=== PATIENT | female | born 1950 | race Caucasian/White ===

== ENCOUNTER 2016-08-15 10:36 | Emergency (ER) | payer MEDICARE, MEDICAID ==
[2016-08-15 11:10] VITALS: BP 114/94
[2016-08-15] MEDS ORDERED: SILVER SULFADIAZINE 50 APPL JAR TP ONE (11:17)
--- NOTE | 2016-08-15 11:26 | ERNOTE ---
ER Burn HPI Date of Service: 08/15/16 Stated Complaint: BURN ON ARM Time Seen by Provider: 08/15/16 11:08 Source: patient Exam Limitations: no limitations Immunizations: IMMUNIZATION HX Immunizations Up to Date Yes History of Influenza Vaccine No Hx Pneumococcal Vaccination No Allergies/Adverse Reactions: Allergies hair dye Allergy (Intermediate, Uncoded 08/15/16 10:47) Home Medications: HOME MEDICATIONS amLODIPine BESYLATE [Norvasc] 5 mg PO DAILY 08/04/14 [Last Taken Unknown] Losartan Potassium [Cozaar] 100 mg PO DAILY 08/15/16 [Last Taken Unknown] Sertraline HCl [Zoloft] 50 mg PO DAILY 08/15/16 [Last Taken Unknown] Silver Sulfadiazine [Silvadene] 1 appl TP BID #1 jar 08/15/16 [Last Taken Unknown] - History of Present Illness Narrative: Pt. comes in with c/o burn on L forearm that blistered and then opened. Pt. states that burn occurred a week ago from hot oil. Pt. denies any numbness tingling, fever, or drainage. Pt. states that she has been applying bactroban and leaving it open to air. Review of Systems - Review of Systems Constitutional: Present: no symptoms reported. Absent: recent illness, fever, chills, weakness, fatigue, malaise EYE: Present: no symptoms reported ENT: Present: no symptoms reported Respiratory: Present: no symptoms reported. Absent: shortness of breath, cough , wheezing Cardiology: Present: no symptoms reported. Absent: chest pain, palpitations, edema Gastrointestinal/Abdominal: Present: no symptoms reported. Absent: nausea, vomiting, diarrhea Genitourinary: Present: no symptoms reported Musculoskeletal: Present: no symptoms reported. Absent: back pain, joint pain Skin: Present: other - burn L forearm. Absent: rash, change in color Neurological: Present: no symptoms reported. Absent: headache, dizziness/light- headedness, numbness, tingling All Other Systems: All systems neg except as marked - Patient's Past Medical History Patient History - Medical: No pertinent hx Patient History - Cardiac/Respiratory: Hypertension, Hyperlipidemia Patient History - Cancer: No Hx of Cancer Patient History - Surgical Procedures: Cholecystectomy, EGD, Hysterectomy, Other Patient History - Other: None LMP (females 10-50): Menopausal - Social History Living Situations: home Abuse History: No History of abuse Psych History: No pertinent hx Alcohol Use: none Drug Use: none - Immunizations Immunizations Up to Date: Yes Hx Pneumococcal Vaccination: No History of Influenza Vaccine: No Physical Exam - Physical Exam General Appearance: Present: wd/wn, alert, no apparent distress Eye Exam: Normal inspection: bilateral, PERRL: bilateral, EOMI: bilateral Respiratory: Present: no respiratory distress, normal breath sounds, no accessory muscle use, chest nontender, lungs clear Cardiovascular/Chest: Present: regular rate, rhythm, no murmur, normal peripheral pulses Back Exam: Present: normal inspection Extremity Exam: Present: other - Burn second degree L forearm blister decompressed and open granulation tissue noted healing as expected Skin Exam: Present: warm/dry, other - Burn second degree L forearm blister decompressed and open granulation tissue noted healing as expected ED Progress - Vital Signs Patient's Vital Signs:: I have reviewed the patient's vital signs. Vital Signs: Vital Signs 08/15/16 08/15/16 10:43 11:08 Temperature 36.2 C L Pulse Rate 68 61 Respiratory 16 Rate Blood Pressure 136/98 114/94 O2 Sat by Pulse 97 95 Oximetry - Progress/Reassessment Chief Complaint: Teixeira Departure Clinical Impression: Burn, second degree - Departure Disposition: Home self-care Condition: Good Instructions: Burn Care, [id number] Additional Instructions: Please follow up with primary provider in 2-23 days. Apply silvadene cream and wrap arm with gauze twice a day after washing with soap and water. Referrals: Estee Ba FNP [Primary Care Provider] - Prescriptions: Silver Sulfadiazine [Silvadene] 1 appl TP BID #1 jar
== END 2016-08-15 11:41 | disposition home or self-care (01) ==
LOC: ER 10:36
DX: T22.212A Burn of second degree of left forearm, initial encounter (principal); X10.2XXA Contact with fats and cooking oils, initial encounter

== ENCOUNTER 2016-10-23 19:00 | Emergency (ER) | payer MEDICARE, MEDICAID ==
[2016-10-23 19:44] VITALS: BP 142/70
--- NOTE | 2016-10-23 21:03 | ERNOTE ---
Medical Problem HPI - General Chief Complaint: Foreign Body Time Seen by Provider: 10/23/16 20:44 Source: patient Exam Limitations: no limitations - Immun/Allergies/Home Medications Immunizations: IMMUNIZATION HX Immunizations Up to Date Yes History of Influenza Vaccine Yes Hx Pneumococcal Vaccination No Allergies/Adverse Reactions: Allergies hair dye Allergy (Intermediate, Uncoded 08/15/16 10:47) Home Medications: HOME MEDICATIONS amLODIPine BESYLATE [Norvasc] 5 mg PO DAILY 08/04/14 [Last Taken Unknown] Losartan Potassium [Cozaar] 100 mg PO DAILY 08/15/16 [Last Taken Unknown] Sertraline HCl [Zoloft] 50 mg PO DAILY 08/15/16 [Last Taken Unknown] Silver Sulfadiazine [Silvadene] 1 appl TP BID #1 jar 08/15/16 [Last Taken Unknown] - History of Present History Narrative: Pt states she has had decreased hearing for the past few days. She was trying to clean out her right ear with a q-tip and the q-tip came out without the cotton. she is afraid that the cotton is stuck in her ear Timing: constant Severity: mild Review of Systems - Review of Systems Constitutional: Absent: recent illness, fever EYE: Present: no symptoms reported ENT: Present: See HPI. Absent: sore throat, throat swelling Respiratory: Absent: shortness of breath Cardiology: Present: no symptoms reported Gastrointestinal/Abdominal: Present: no symptoms reported Genitourinary: Present: no symptoms reported Musculoskeletal: Present: no symptoms reported Skin: Present: no symptoms reported Neurological: Present: no symptoms reported Endocrine: Present: no symptoms reported Hematologic/Lymphatic: Present: no symptoms reported Psych: Present: no symptoms reported - Patient's Past Medical History Patient History - Medical: No pertinent hx Patient History - Cardiac/Respiratory: Hypertension, Hyperlipidemia Patient History - Cancer: No Hx of Cancer Patient History - Surgical Procedures: Cholecystectomy, EGD, Hysterectomy, Other Patient History - Other: None - Social History Living Situations: home Abuse History: No History of abuse Psych History: No pertinent hx Smoking Status: Former smoker Alcohol Use: none Drug Use: none - Immunizations Immunizations Up to Date: Yes Hx Pneumococcal Vaccination: No History of Influenza Vaccine: Yes Physical Exam - Physical Exam General Appearance: Present: wd/wn, alert, no apparent distress Head Exam: Present: normal inspection, no evidence of injury Eye Exam: Normal inspection: bilateral Ears, Nose, Throat: Present: cerumen impaction - bilateral moderate no FB found in either ear, normal pharynx Neck: Present: normal inspection, nontender Respiratory: Present: no respiratory distress, no accessory muscle use Extremity Exam: Present: normal inspection, normal range of motion Neurological Exam: Present: alert, oriented, normal mood/affect Skin Exam: Present: normal color, warm/dry Lymphatic Exam: Present: no adenopathy ED Progress - Vital Signs Vital Signs: Vital Signs 10/23/16 19:38 Temperature 36.8 C Pulse Rate 66 Respiratory 18 Rate Blood Pressure 142/70 O2 Sat by Pulse 96 Oximetry - Progress/Reassessment Chief Complaint: Foreign Body Progress:: Improved Progress Note-Subjective: 10/23/16 21:01 hearing better after cerumen removal Procedures Complications: other - Cerumen removed from right ear with ear loop under direct observation and no FB found. Some cerumen removed from left ear and remaining cerumen was flushed out by the RN. Pt tolerated procedure well. Departure - Departure Clinical Impression: Cerumen impaction Qualifiers: Laterality: bilateral Qualified Code(s): H61.23 - Impacted cerumen, bilateral Disposition: Home self-care Condition: Good Instructions: Earwax Buildup Additional Instructions: use ear washes regularly to keep ahead of the wax buildup. Do not use q-tips as they push the wax back further and irritate the skin. Follow up as needed Referrals: Estee Ba FNP [Primary Care Provider] -
== END 2016-10-23 21:19 | disposition home or self-care (01) ==
LOC: ER 19:00
DX: H61.23 Impacted cerumen, bilateral (principal); Z87.891 Personal history of nicotine dependence

== ENCOUNTER 2017-01-03 07:38 | Day surgery (SDC) | payer MEDICARE, MEDICAID ==
[~2017-01-03 07:38] MED LIST: RINGER'S SOLUTION,LACTATED 1,000 ML IV PRN
[2017-01-03] MEDS ORDERED: RINGER'S SOLUTION,LACTATED 1,000 ML IV ONE (12:15)
[2017-01-03] MEDS ORDERED: BUPIVACAINE HCL 50 ML VIAL IJ ONE (13:07)
[2017-01-03] MEDS ORDERED: ISOSULFAN BLUE 10 MG/ML VIAL IJ ONE (13:07)
--- NOTE | 2017-01-03 14:21 | OR ---
Operative Report - Dictated Report Narrative: Date 01/03/2017 Preoperative diagnosis: Right breast cancer Postoperative diagnosis: Same Procedure: Injection of blue dye. Right deep axillary sentinel lymph node biopsy. Right needle localized partial mastectomy. Staff surgeon: Raul Gray MD Anesthesia: GETA EBL: 30cc Specimens: Right axillary sentinel nodes. Right breast tissue with spatial orientation Description: Following the smooth induction of general endotracheal anesthesia the right breast and axilla were prepped and draped in a sterile fashion. 5 mL of Lymphazurin was injected in the subareolar position and massaged for distribution into the lymphatics. A neoprobe was used to identify the point of maximal counts. A field block was performed in the right axilla with Marcaine and an incision was carried out at the point of maximal counts. Dissection was taken down through the subcutaneous tissue through the clavipectoral fascia. We immediately encountered a blue and extremely hot lymph node with counts of 19 ,800. A transfixing suture was placed through this note for traction. This node was excised with electrocautery and several other additional nodes immediately adjacent were also included en-bloc with this specimen. Hemostasis was adequate and this incision was closed with a subcuticular stitch of 4-0 Vicryl and sealed with Dermabond. There is a localizing wire entering the breast approximately 3 finger breaths above the areolar border at approximately the 12:00 radius. A field block was performed in this area and an incision was carried out where the wire went through the skin. The wire was followed until we happened upon the thickened bar. We then fanned out into a 4 cm cylinder and excised all the tissue beyond the end of the wire. This specimen was oriented as follows: The wire is in the superficial position, the short stitch is in the caudad position, the long stitch is in the cephalad position. This specimen was submitted for radiogram and was restricted to contain the previous biopsy clip as well as several adjacent calcifications. Hemostasis appeared to be adequate. The biopsy cavity was filled with Marcaine. The incision was closed with a subcuticular stitch of 4-0 Vicryl and sealed with Dermabond. The patient tolerated the procedure well without any apparent complications and was discharged from the operating room in stable condition.
[2017-01-03] MEDS ORDERED: ONDANSETRON HCL/PF 2 MG/ML VIAL IV PRN (14:53)
[2017-01-03] MEDS ORDERED: MORPHINE SULFATE 2 MG/ML DISP.SYRIN IV PRN (14:53)
[2017-01-03] MEDS ORDERED: HYDROcodone/ACETAMINOPHEN 1 EACH TABLET PO PRN (14:54)
[2017-01-03 15:37] VITALS: BP 151/86
== END 2017-01-03 07:39 | disposition home or self-care (01) ==
LOC: AMB 07:38
PROVIDERS: ATTEND Specialist
PROC: 0HBT0ZX Excision of Right Breast, Open Approach, Diagnostic (ICD-10-PCS; 2017-01-03)
PROC: 3E0W3KZ Introduction of Other Diagnostic Substance into Lymphatics, Percutaneous Approach (ICD-10-PCS; 2017-01-03)
PROC: 0HBT0ZZ Excision of Right Breast, Open Approach (ICD-10-PCS; principal; 2017-01-03 12:10)
DX: D05.11 Intraductal carcinoma in situ of right breast (principal); I10 Essential (primary) hypertension; Z87.891 Personal history of nicotine dependence; Z68.27 Body mass index [BMI] 27.0-27.9, adult
CPT/HCPCS: 19281; 19301; 38525; 38900; 76098; 78195; A9541